=== PATIENT | female | born 1960 | race Caucasian/White ===

== ENCOUNTER → 2018-06-01 | Day surgery (SDC) | payer BC ==
[~2018-06-01] MED LIST: Lactated Ringers 1,000 ML IV SCH; Midazolam 1 MG/ML 2 ML SDV IV ONE; Propofol 200 MG/20 ML SDV IV ONE; fentaNYL 100 MCG/2 ML SDV IV ONE
--- NOTE | 2018-06-01 13:24 | OR ---
DATE OF OPERATION: 06/01/2018 PREOPERATIVE DIAGNOSIS: RIGHT CARPAL TUNNEL SYNDROME. POSTOPERATIVE DIAGNOSIS: RIGHT CARPAL TUNNEL SYNDROME. SURGEON: Tyler Dow MD PROCEDURE: RELEASE OF CARPAL TUNNEL SYNDROME, RIGHT HAND. ANESTHESIA: [place] block. SPECIMEN: None. INDICATION FOR PROCEDURE: This 57-year-old female has classical carpal tunnel syndrome, right side. PROCEDURE: AFTER ADEQUATE PREPARATION, A LONGITUDINAL INCISION WAS MADE AT THE WRIST AND CARRIED DOWN INTO THE PALM. THIS WAS TAKEN DOWN TO THE TRANSVERSE CARPAL LIGAMENT WHICH WAS SHARPLY INCISED WITH A 15 KNIFE BLADE. A HEMOSTAT WAS PLACED UNDERNEATH THIS, AND SEQUENTIALLY THE LIGAMENT WAS CUT DOWN TO RELEASE IT FULLY DISTALLY. THERE WAS ONLY MINIMAL BLEEDING AFTER THE TOURNIQUET WAS DOWN. THE SKIN WAS CLOSED WITH 3-0 MONOCRYL. THE PATIENT WAS TAKEN TO RECOVERY ROOM. JHON/PATRICE /[id number]
[2018-06-01 13:57] VITALS: BP 124/82
== END ==
LOC: CC.SDS 10:55
PROVIDERS: ATTEND Surgery
DX: G56.01 Carpal tunnel syndrome, right upper limb (principal); I48.0 Paroxysmal atrial fibrillation; M19.90 Unspecified osteoarthritis, unspecified site; I10 Essential (primary) hypertension; K21.9 Gastro-esophageal reflux disease without esophagitis; K44.9 Diaphragmatic hernia without obstruction or gangrene; E78.00 Pure hypercholesterolemia, unspecified; G47.33 Obstructive sleep apnea (adult) (pediatric); M81.8 Other osteoporosis without current pathological fracture; M17.5 Other unilateral secondary osteoarthritis of knee; E04.1 Nontoxic single thyroid nodule; E55.9 Vitamin D deficiency, unspecified; Z79.82 Long term (current) use of aspirin; Z79.84 Long term (current) use of oral hypoglycemic drugs; Z79.899 Other long term (current) drug therapy; Z87.891 Personal history of nicotine dependence
CPT/HCPCS: 64721; 82962; J2250; J2704; J3010; J7120

== ENCOUNTER → 2019-04-27 | Day surgery (SDC) | payer BC ==
[~2019-04-27] MED LIST changes: -Midazolam 1 MG/ML 2 ML SDV IV ONE; -fentaNYL 100 MCG/2 ML SDV IV ONE
[2019-04-27 09:36] VITALS: BP 131/82; PULSE 70
--- NOTE | 2019-04-27 11:09 | OR ---
DATE OF OPERATION: 04/27/2019 PREOPERATIVE DIAGNOSIS: 1. HISTORY OF POLYPS. 2. ALTERED BOWEL HABITS. POSTOPERATIVE DIAGNOSIS: 1. HISTORY OF POLYPS. 2. ALTERED BOWEL HABITS. SURGEON: Jonny Jaimes MD PROCEDURE: DIAGNOSTIC COLONOSCOPY WITH BIOPSIES X4, POLYP REMOVAL X2. ANESTHESIA: MAC. COMPLICATIONS: None. SPECIMEN: 1. Two sessile polyps, hepatic flexure and sigmoid colon. 2. Random biopsies x4. FINDINGS: 1. Full-length colonoscopy. 2. Two small sessile polyps, both 3 mm or less. 3. No obvious signs of colitis or etiology of patient's altered bowel habits. RECOMMENDATIONS: Close followup pending path reports, routine followup colonoscopy in 5 years for polyps. INDICATIONS: The patient has a history of polyps removed in the past. She is approximately due for a colonoscopy for followup in that regard, but she has also been having some altered bowel habits in the form of diarrhea. Sheridan Winters sent her for diagnostic scope. DESCRIPTION OF PROCEDURE: The patient was prepped and draped, placed in the left lateral decubitus position. A lubricated Olympus colonoscope was inserted and easily advanced to the cecum. Direct visualization of the ileocecal valve and appendiceal orifice was accomplished. The bowel prep was adequate. Upon withdrawal of the scope, throughout the entire length of the colon, I could find no identifiable etiology of patient's diarrhea. No signs of colitis, vascular abnormalities, diverticulosis, etc. We did do random biopsies from the cecum to the rectal vault x5. The patient did have 2 small sessile polyps, 1 at the hepatic flexure and 1 in the mid sigmoid colon. Both were approximately 3 mm flat, and removed with 2 forceps biopsies each in their entirety. The rest of the colon was unremarkable. Retroflexion of the scope in the rectum showed no perianal lesions. Air was suctioned, scope removed without complication. RADHA/PATRICE /[id number]
== END ==
LOC: CC.SDS 07:34
PROVIDERS: ATTEND Family Medicine
DX: D12.5 Benign neoplasm of sigmoid colon (principal); K63.5 Polyp of colon; E11.40 Type 2 diabetes mellitus with diabetic neuropathy, unspecified; E78.5 Hyperlipidemia, unspecified; I10 Essential (primary) hypertension; G89.29 Other chronic pain; M79.673 Pain in unspecified foot; Z86.010 Personal history of colon polyps; Z79.899 Other long term (current) drug therapy; Z79.01 Long term (current) use of anticoagulants; Z79.84 Long term (current) use of oral hypoglycemic drugs
CPT/HCPCS: 45380; J2704; J7120